=== PATIENT | male | born 1950 | race Caucasian/White ===

== ENCOUNTER 2016-10-02 12:18 | Day surgery (SDC) | payer MEDICARE, OTHER ==
[~2016-10-02] VITALS: Ht 175.3 cm; Wt 98.9 kg
[~2016-10-02 12:18] MED LIST: ASPI-973 PO; ATEN50TA PO; CHOL10008 PO; CIPR250T3 PO; CYAN1TAB42 PO; GLIP10TA10 PO; INSU100V7 SUBQ; LISI-567 PO; Lactated Ringer's 1,000 ML IV ONE; METR500T19 PO; MULT-666 PO; NIFEDICAL PO; NITR0.4T6 SL; OMEG-38 PO; PIOG45TA18 PO
[2016-10-02] MEDS ORDERED: Propofol 10,000 mCg/mL 20 mL Inj ONE (12:19)
[2016-10-02 12:42] VITALS: BP 126/69; PULSE 84; RESP 14; O2SAT 92
[2016-10-02] MEDS ORDERED: Ondansetron 2 mg/mL 2 mL Inj IVPUSH PRN (13:15)
[2016-10-02] MEDS ORDERED: Lactated Ringer's 1,000 ML IV SCH (13:15)
[2016-10-02] MEDS ORDERED: MetoCLOpramide 5 mg/mL 2 mL Inj IVPUSH PRN (13:15)
[2016-10-02 13:36] VITALS: BP 167/70; PULSE 78; RESP 14; O2SAT 96
[2016-10-02 13:47] VITALS: BP 118/81; PULSE 72; RESP 14; O2SAT 96
[2016-10-02 13:57] VITALS: BP 118/81; PULSE 79; RESP 16; O2SAT 96
--- NOTE | 2016-10-02 14:12 | ENDO ---
[address] [address] ENDOSCOPY PROCEDURE PATIENT: COLUMBA COFFEY : 1950 MR#: [id number] ADMIT: 10/02/2016 JOB ID: [id number] OPERATION: Colonoscopy with biopsy. PREOPERATIVE DIAGNOSIS: Rectal bleeding and bloody diarrhea. POSTOPERATIVE DIAGNOSIS: Loss of architecture and vascularity with ulcerations seen from 80 cm from the anus to the rectum, from the splenic flexure down to the rectum, concerning for ulcerative colitis. Status post biopsy. ANESTHESIA: Monitored anesthesia care. COMPLICATIONS: None. BLOOD LOSS: Minimal. DESCRIPTION OF PROCEDURE: After the risks and benefits were explained to the patient, informed consent was obtained. After anesthesia was administered, the colonoscope was inserted from the rectum to the terminal ileum and the mucosa carefully examined. Prep of the patient was excellent. After the procedure was done, the scope was withdrawn and the procedure terminated. FINDINGS: Upon inspection of the anus no masses, hemorrhoids, ulcers, or fissures that were seen. Throughout the entire examination there was loss of architecture and vascularity, and erythema with ulcerations, from 80 cm up the anus to the rectum, or the splenic flexure to the rectum, most concerning for ulcerative colitis. More proximal to that, the mucosa appeared to be normal. Biopsies were taken from the terminal ileum and in the colon to rule out inflammatory bowel disease. The terminal ileum also appeared normal, without ulcerations. Retroflexion was not performed due to the patient's concern for ulcerative colitis in the rectum given the high risk of perforation. IMPRESSION: Loss of architecture and vascularity from 80 cm of the anus to the rectum, or splenic flexure to the rectum, most concerning for left-sided ulcerative colitis. RECOMMENDATIONS: 1. Lialda 2.4 g by mouth once a day and Rowasa 6 g per rectal q.h.s. and Uceris 9 mg by mouth once a day to be started. 2. Follow up in GI Clinic in six weeks from today.
--- NOTE | 2016-10-02 15:44 | PCM.HPANE ---
Patient Data Surgeon Admitting Provider: Attending Provider:Tahir Watkins MD Primary Care Physician:Carlton Coleman MD Other Provider:[facility] Reason for Visit Diarrhea Ht/WT & BMI Body Mass Index Allergies Coded Allergies: No Known Allergies (Unverified , 10/01/16) Medications Reported Medications Cholecalciferol (Vitamin D3) (Vitamin D3)1,000 Unit Tab.chew1,000 Unit PO DAILY 10/01/16 Cyanocobalamin/Folic Acid (Vitamin L39-Zwycy Acid Tablet)1 Each Tablet1 Each PO DAILY 10/01/16 Pioglitazone 45 Mg Wxucld49 Mg PO DAILY Ref 0 10/01/16 Multivitamin (Once Daily)1 Each Tablet1 Each PO DAILY 10/01/16 Nitroglycerin SL 0.4 Mg Tab.subl0.4 Mg SL DIRECTED 10/01/16 [Nifedical XL] No Conflict Check30 Mg PO DAILY 10/01/16 Lisinopril 20 Mg Rkyzxm60 Mg PO DAILY 30 Days Ref 0 10/01/16 Insulin Glargine (Lantus U100 Insulin Vial)100 Unit/Ml Vial22 Unit SUBQ HS #1 VIAL Ref 0 10/01/16 Glipizide 10 Mg Dapvlz19 Mg PO BID 30 Days 10/01/16 [place]-3/Dha/Epa/Fish Oil (Fish Oil 1,000 mg Softgel)1 Each Capsule1 Each PO DAILY 10/01/16 Atenolol 50 Mg Xtbyfm02 Mg PO DAILY #30 TABLET Ref 0 10/01/16 Aspirin 81 Mg Fdechl34 Mg PO DAILY Ref 0 10/01/16 Discontinued Reported Medications Metronidazole 500 Mg Klmgbh957 Mg PO TID Ref 0 10/01/16 Ciprofloxacin 250 Mg Yczkgq849 Mg PO BID Ref 0 10/01/16 Stop/Bang Risk Assessment Category Category 1A: Patient has history of documented sleep apnea, and HAS NOT received any narcotic, sedative or anesthesia administration during this stay. Category 1B: Patient has history of documented sleep apnea, and HAS received any narcotic , sedative or anesthesia administration during this stay Category 2: Patient has SUSPECTED Obstructive Sleep Apnea, and HAS received any narcotic , sedative or anesthesia administration during this stay. Category 3: Patient has SUSPECTED Obstructive Sleep Apnea and HAS NOT received narcotic, sedative or anesthesia administration during this stay. Category 4: Outpatient in Procedural Areas with known sleep apnea or who screen positive for High Risk via the STOP/BANG questionnaire. Exam Exam General Appearance: Alert, Oriented X3, Cooperative, No Acute Distress HEENT/AIRWAY: MP 2 Lungs: Clear to Auscultation, Normal Air Movement Heart: Exam Unremarkable, Regular Rate/Rhythm, No Murmurs/Rubs/Gallops Plan Impression Patient chart reviewed, patient interviewed and anesthestic plan with risks, benefits, and alternatives discussed, and informed consent obtained. NPO Status: > 8hrs ASA Physical Status: ASA2 Mod Systemic Disease Anesthetic Plan: MAC Bene/Risks/Altern/Consents: Yes HP Complete Prior to Induction: Yes Oscar Gould MD Oct 02, 2016 07:27
--- NOTE | 2016-10-02 15:44 | PCM.ANEP1 ---
Post Anesthesia Phase 1 PACU Phase 1 Assessment Vital Signs Vital Signs Date Time Temp Pulse Resp B/P Pulse Ox O2 Delivery O2 Flow Rate FiO2 10/02/16 13:57 79 16 118/81 96 Room Air 10/02/16 13:47 72 14 118/81 96 Room Air 10/02/16 13:36 78 14 167/70 96 Room Air 10/02/16 12:42 84 14 126/69 92 Room Air Anesthetic Administered: MAC Level of Alertness: Awake, talking SAGASTUME's with Equal Strength: Yes Pain: No Nausea or Vomiting: No Oxygen Delivery: Room Air Lungs: Clear to Auscultation, Normal Air Movement Dermatome Level: Full Sensation Oscar Gould MD Oct 02, 2016 15:44
--- NOTE | 2016-10-02 15:44 | PCM.ANEP2 ---
Post Anesthesia Evaluation ASA/CMS Post Anesthesia VS in Patient's Normal Range?: Yes Resp Stable; Airway Patent?: Yes CV Function & Hydration Stable: Yes Mental Status Recovered?: Yes Pain control Satisfactory?: Yes N/V Control Satisfactory?: Yes Oscar Gould MD Oct 02, 2016 15:44
--- NOTE | 2016-10-06 11:36 | PATH ---
SURGICAL PATHOLOGY Attending Physician:Tahir Watkins MD CASE STATUS: Signed Out PATIENT NAME: COLUMBA COFFEY PID: [id number] : 1950 DATE COLLECTED:10/02/2016 00:00 SPECIMEN: 1: Ileum, Biopsy 2: Colon, Biopsy 3: Anus, Biopsy CLINICAL HISTORY: 1). TERMINAL ILEUM BIOPSY 2). ASCENDING BIOPSY 3). 80CM FROM ANUS FINAL DIAGNOSIS: 1.TERMINAL ILEUM BIOPSY: FRAGMENTS OF NORMAL-APPEARING TERMINAL ILEUM MUCOSA. Negative for granulomas. Negative for significant inflammation, dysplasia and malignancy. 2.ASCENDING COLON BIOPSIES: FRAGMENTS OF NORMAL-APPEARING COLON MUCOSA. Negative for significant architectural distortion. Negative for significant inflammation, dysplasia and malignancy. 3.COLON BIOPSY, 80 CM FROM THE ANUS: DIFFUSE CHRONIC ACTIVE COLITIS WITH CRYPTITIS AND FOCAL CRYPT ABSCESSES. REACTIVE EPITHELIAL CHANGES, BUT NEGATIVE FOR DYSPLASIA AND MALIGNANCY. Negative for granulomas. ICD10 code K51.9 NOTE: The changes present in part 3 although not specific, would be consistent with primary inflammatory bowel disease. Clinical correlation is suggested. GROSS DESCRIPTION: The specimen is received in three formalin filled containers labeled with the patient's name. 1). The specimen is sublabeled "TI" and consists of a 0.3 x 0.3 x 0.2 CM portion of tissue which is entirely submitted in cassette 1A. 2). The specimen is sublabeled "ascending" and consists of 2 portions of tissue which aggregate to 0.4 x 0.3 x 0.2 CM. The specimen is entirely submitted in cassette 2A. 3). The specimen is sublabeled "80 CM from anus" and consists of 4 portions of tissue which aggregate to 0.5 x 0.4 x 0.3 CM. Specimen is entirely submitted in cassettes 3A. 10/03/2016 [facility] MICRO DESCRIPTION: See diagnosis. ICD-9 CODES: CPT CODES: 1: 83669 2: 44546 3: 84353 Electronically Signed Out Jl Strauss MD [facility] Pathology [facility] [address], [place] [address] Technical component performed at [facility], [facility] [address], [place], [address]
[2016-12-07] MEDS ORDERED: MESA1.2T2 PO (15:32)
[2016-12-07] MEDS ORDERED: BUDE9TAB PO (15:32)
== END 2016-10-02 23:59 | disposition home or self-care (01) ==
LOC: END 12:18
PROVIDERS: ATTEND Internal Medicine Gastroenterology
DX: K52.9 Noninfective gastroenteritis and colitis, unspecified (principal); K62.5 Hemorrhage of anus and rectum; R10.32 Left lower quadrant pain; I25.10 Atherosclerotic heart disease of native coronary artery without angina pectoris; E11.9 Type 2 diabetes mellitus without complications; I10 Essential (primary) hypertension; E78.5 Hyperlipidemia, unspecified; Z85.828 Personal history of other malignant neoplasm of skin; Z79.82 Long term (current) use of aspirin; Z79.4 Long term (current) use of insulin
CPT/HCPCS: 45380; 88305; J7120

== ENCOUNTER 2016-12-08 00:14 | Day surgery (SDC) | payer MEDICARE, OTHER ==
[2016-12-08] VITALS (12 sets, daily range): BP systolic 125–138; BP diastolic 55–79; PULSE 56–73; RESP 15–17; O2SAT 95–96
[~2016-12-08] VITALS: Ht 175.3 cm; Wt 104.0 kg
[~2016-12-08 00:14] MED LIST changes: -ASPI-973 PO; +BUDE9TAB PO; -CIPR250T3 PO; -Lactated Ringer's 1,000 ML IV ONE; +MESA1.2T2 PO; -METR500T19 PO
--- NOTE | 2016-12-08 08:15 | NUR ---
ADMISSION NOTE MALE PT ADMITTED FOR HEART CATH . DISCUSSED PLAN OF CARE WITH PT AND FAMILY .SEE ADMIT AND FLOW SHEET
[2016-12-08 08:39] LABS: BASOPHILS % (AUTO) 0.6 % (0-3); EOSINOPHILS % (AUTO) 2.4 % (0-5); MONOCYTES % (AUTO) 10.8 % (4-12); Mean Corpuscular Hemoglobin 29.7 pg (27.0-35.0); NEUTROPHILS % (AUTO) 59.8 % (40-74); Platelet Count 211 bil/L (150-400)
[2016-12-08] MEDS ORDERED: Heparin 1,000 Units/500 mL NS Premix IV ONE (09:16)
[2016-12-08] MEDS ORDERED: Heparin 5,000 Units/500 mL NS Premix IV ONE (09:16)
[2016-12-08] MEDS ORDERED: Heparin 1,000 Unit/mL 10 mL Inj ONE ×2 (09:16→10:20)
[2016-12-08] MEDS ORDERED: Nitroglycerin 50,000 mcg/250 mL D5W Premix IV ONE (09:16)
[2016-12-08] MEDS ORDERED: Verapamil 2.5 mg/mL 2 mL Inj ONE (09:20)
[2016-12-08] MEDS ORDERED: MESA4ENE RC (09:20)
[2016-12-08] MEDS ORDERED: fentaNYL-PF 50 mCg/mL 2 mL Inj ONE ×2 (09:43→10:20)
--- NOTE | 2016-12-08 15:02 | DI95 ---
[address] [address] INTERVENTIONAL CARDIAC CATHETERIZATION PATIENT: COLUMBA COFFEY : 1950 MR#: [id number] ADMIT: 12/08/2016 JOB ID: [id number] DATE: 12/08/2016 PROCEDURE: 1. Selective right and left coronary angiography. 2. Left heart catheterization. 3. Left ventriculography. 4. Percutaneous intervention on left anterior descending. 5. Percutaneous intervention on the circumflex. INDICATION: Abnormal stress test, chest pain. PROCEDURAL DETAILS: The reader and the coders are referred to the procedure log for complete details. Briefly, it was done via right radial approach using a 6-Chinese system. ANGIOGRAPHIC FINDINGS: 1. Left main: No significant disease. 2. LAD: Mild calcification is noted on fluoroscopy. In its mid segment, the LAD has a tight 80% lesion. Further down in the mid to distal LAD, there is a 20% to 30% plaque. The rest of the vessel is free of any critical stenosis. Small diminutive diagonals have ostial disease. These are less than 1 mm. 3. The ramus intermedius is a moderate caliber vessel. In its proximal to mid segment, it has diffuse disease. Proximally, it has about 30% to 40%. Worse is in the mid segment where it is about 40% to 60%. 4. Circumflex is a codominant vessel. The first major obtuse marginal branch has a 70% lesion past an area of stenting. The ongoing AV groove branch has a 90% lesion. Past the second OM branch, it is totally occluded. It forms a small distal left PDA. 5. Right coronary artery is codominant. In its mid segment, it has long tubular stenosis of about 40%. This extends from proximal to all the way to mid segment. The posterolateral branch is a small, free of any significant disease. The PDA is small as well, probably because it is codominant. No critical stenosis in the PDA. 6. Left heart catheterization revealed an LVEDP of 15. There was no gradient upon pullback. Hand injections seems to suggest good preserved contractility. INTERVENTIONAL REPORT: We then proceeded ahead with an intervention on the LAD. A Runthrough wire was used. The lesion was pre-dilated and then stented with a 2.75 x 15 mm Xience stent at 16 atmospheres with excellent angiographic results. We then turned our attention to the circumflex. The first obtuse marginal branch probably has very scant restenosis. This was pre-dilated with a 2.0 balloon and then stented with a 3.0 x 15 mm Xience drug-coated stent. Final angiographic results were excellent. Following that, balloon angioplasty was done in the AV groove branch with the hope of improving flow into the very distal vessel. 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 Given the fact that this is a small vessel, it is moderately collateralized. My recommendation would be a trial of medical therapy for this. SUMMARY: Successful two-vessel intervention. The patient is advised to stay on Plavix for at least six months post procedure, along with his aspirin.
--- NOTE | 2016-12-09 15:51 | NUR ---
Follow up call day after same day discharge PCI on 12/08/[address] mSiley. Pt reports feeling good - Right radial access site for PCI placement "looks good, and is not tender". Denies any chest pain and is looking forward to being more active.
== END 2016-12-08 23:59 | disposition home or self-care (01) ==
LOC: SOUO 00:14
PROVIDERS: ATTEND Internal Medicine Cardiovascular Disease
DX: I25.10 Atherosclerotic heart disease of native coronary artery without angina pectoris (principal); Z95.5 Presence of coronary angioplasty implant and graft
CPT/HCPCS: 36415; 80048; 85025; 92920; 93005; 93458; 99152; 99153; C1725; C1729; C1769; C1874; C1887; C1894; C9600; J1200; J1644; J2060; J2250; J3010; J7030; Q9967